=== PATIENT | female | born 1955 | race Caucasian/White ===

== ENCOUNTER → 2017-01-21 | Outpatient (REF) | payer OTHER ==
--- NOTE | 2017-01-21 13:46 | Diagnostic Imaging Report ---
INDICATION: Trauma. Three views. AVAILABLE COMPARISONS: None FINDINGS: An acute transverse fracture of the distal diaphysis of the fourth metatarsal is present with minimal overriding and no significant displacement. There is no Lisfranc lesion. Mild degenerative change of the first metatarsophalangeal joint is present. A degree of osteopenia is present. No other fracture is identified. IMPRESSION: 1. Acute fracture of the distal diaphysis of the left fourth metatarsal. Dictated by: Dictated on workstation # [id number]
== END ==
LOC: RAD 11:28
PROVIDERS: ATTEND Physician Assistant
DX: M79.672 Pain in left foot (principal); S92.342A Displaced fracture of fourth metatarsal bone, left foot, initial encounter for closed fracture; X58.XXXA Exposure to other specified factors, initial encounter